=== PATIENT | female | born 1980 | race Two or more races ===

== ENCOUNTER 2017-11-03 02:21 | Emergency (ER) | payer MEDICAID, OTHER, SELFPAY ==
[~2017-11-03] VITALS: Ht 157.5 cm; Wt 68.0 kg
[2017-11-03] MEDS ORDERED: ONDANSETRON 2MG/ML, 2ML ONE (03:59)
[2017-11-03] MEDS ORDERED: MORPHINE SULFATE 4 MG/ML, 1ML ONE (03:59)
[2017-11-03] MEDS ORDERED: ONDANSETRON 2MG/ML, 2ML IVPush ONE (04:00)
[2017-11-03] MEDS ORDERED: MORPHINE SULFATE 4 MG/ML, 1ML IVPush PRN (04:00)
[2017-11-03 04:16] LABS: BASOPHILS # (AUTO) 0.02 x10^3/uL (0-0.1); BASOPHILS % (AUTO) 0 % (0-1); EOSINOPHILS # (AUTO) 0.07 x10^3/uL (0-0.4); EOSINOPHILS % (AUTO) 1 % (1-7); LYMPHOCYTES % (AUTO) 13 % (22-44); MD NO; MEAN CORPUSCULAR HEMOGLOBIN 30.4 pg (27.0-34.8); MEAN CORPUSCULAR HGB CONC 33.9 g/dL (32.4-35.8); MEAN CORPUSCULAR VOLUME 89.5 fL (80-100); MONOCYTES # (AUTO) 0.57 x10^3/uL (0.2-0.8); MONOCYTES % (AUTO) 5 % (2-9); NEUTROPHILS # (AUTO) 9.17 x10^3/uL (1.8-6.8); NEUTROPHILS % (AUTO) 82 % (42-75); PLATELET COUNT 297 x10^3/uL (130-400); RED BLOOD COUNT 4.33 x10^6/uL (3.82-5.3); RED CELL DISTRIBUTION WIDTH 13.2 % (9.6-15.2)
[2017-11-03 04:23] LABS: ALBUMIN 3.7 g/dL (3.4-5.0); ANION GAP 5 mmol/L (5-15); CALCIUM 8.7 mg/dL (8.5-10.1); CHLORIDE 109 mmol/L (98-107); CREATININE 1.14 mg/dL (0.55-1.02)
[2017-11-03 04:47] LABS: CULTURE INDICATED? NO; MICROSCOPIC NOT IND
[2017-11-03 05:28] VITALS: BP 112/67
== END 2017-11-03 05:41 | disposition home or self-care (01) ==
LOC: ED 05:19
DX: N83.201 Unspecified ovarian cyst, right side (principal); R10.2 Pelvic and perineal pain; R11.2 Nausea with vomiting, unspecified
CPT/HCPCS: 36415; 76830; 80048; 81003; 82040; 84703; 85025; 96374; 96375; 99285; J2405

== ENCOUNTER → 2019-04-01 | Outpatient (CLI) | payer BC | END | disposition home or self-care (01) | LOC: CFH 14:37 | PROVIDERS: ATTEND Obstetrics & Gynecology | DX: N60.02 Solitary cyst of left breast (principal); N60.01 Solitary cyst of right breast | CPT/HCPCS: 76642; 77066; G0279 ==

== ENCOUNTER → 2020-08-23 | Outpatient (CLI) | payer BC | END | disposition home or self-care (01) | LOC: STAR 09:04 | PROVIDERS: ATTEND Anesthesiology | DX: Z01.812 Encounter for preprocedural laboratory examination (principal); Z20.828 Contact with and (suspected) exposure to other viral communicable diseases | CPT/HCPCS: 36415; 87635 ==

== ENCOUNTER 2020-08-27 05:54 | Day surgery (SDC) | payer BC ==
[~2020-08-27] VITALS: Ht 157.5 cm; Wt 69.0 kg
[2020-08-27 06:38] VITALS: BP 113/74
[2020-08-27] MEDS ORDERED: LACTATED RINGERS 1,000 ML IV SCH (07:00)
[2020-08-27] MEDS ORDERED: CHLORHEXIDINE 15 ML UDC MM ONE (07:00)
[2020-08-27] MEDS ORDERED: LIDOCAINE-MPF 1%, 2ML ONE (07:05)
[2020-08-27] MEDS ORDERED: EPINEPHRINE 1 MG/ML, 1ML ONE (07:08)
[2020-08-27] MEDS ORDERED: BUPIVACAINE/PF 0.25% ONE (07:08)
[2020-08-27] MEDS ORDERED: SILVER NITRATE STICK TP ONE (07:09)
[2020-08-27] MEDS ORDERED: KRIL500C PO (07:14)
[2020-08-27] MEDS ORDERED: ELDE1CAP PO (07:14)
[2020-08-27] MEDS ORDERED: MULT1CAP19 PO (07:14)
[2020-08-27] MEDS ORDERED: CYAN250013 PO (07:14)
[2020-08-27] MEDS ORDERED: MIDAZOLAM 1 MG/ML, 2ML ONE (07:29)
[2020-08-27] MEDS ORDERED: FENTANYL PF 100 MCG/2ML ONE (07:29)
[2020-08-27 07:36] LABS: BASOPHILS % (AUTO) 1 % (0-1); EOSINOPHILS % (AUTO) 4 % (1-7); LYMPHOCYTES % (AUTO) 31 % (22-44); MEAN CORPUSCULAR HGB CONC 31.7 g/dL (32.4-35.8); MEAN PLATELET VOLUME 8.2 fL (7.4-10.4); MONOCYTES % (AUTO) 7 % (2-9); NEUTROPHILS % (AUTO) 57 % (42-75); PLATELET COUNT 389 x10^3/uL (130-400); RED BLOOD COUNT 4.31 x10^6/uL (3.82-5.3); RED CELL DISTRIBUTION WIDTH 16.6 % (9.6-15.2)
[2020-08-27 07:39] LABS: MD NO
[2020-08-27] MEDS ORDERED: PROPOFOL 50 ML ONE (07:44)
[2020-08-27] MEDS ORDERED: DEXAMETHASONE 4 MG/ML, 1ML ONE (07:58)
[2020-08-27] MEDS ORDERED: ONDANSETRON 2MG/ML, 2ML ONE (07:58)
[2020-08-27] MEDS ORDERED: CEFAZOLIN 1,000 MG ONE (07:58)
[2020-08-27] MEDS ORDERED: PROPOFOL 10 MG/ML, 20ML ONE (07:58)
[2020-08-27] MEDS ORDERED: KETOROLAC 30 MG/1 ML ONE (07:58)
[2020-08-27] MEDS ORDERED: LORazepam 2 MG/ML, 1ML IVPush PRN (08:00)
[2020-08-27] MEDS ORDERED: HYDROmorphone 1 MG/ML, 1ML INJ IVPush PRN (08:00)
[2020-08-27] MEDS ORDERED: METHOCARBAMOL 1,000 MG in DEXTROSE 5% 100 ML IV PRN (08:00)
[2020-08-27] MEDS ORDERED: OXYcodone 5 MG/5 ML ORAL.SOL UDC PO PRN (08:00)
[2020-08-27] MEDS ORDERED: PROMETHAZINE 25 MG/ML, 1ML IVPush PRN (08:00)
[2020-08-27] MEDS ORDERED: FENTANYL PF 100 MCG/2ML IV PRN (08:00)
[2020-08-27] MEDS ORDERED: ACETAMINOPHEN 325 MG TABLET PO PRN (08:00)
[2020-08-27] MEDS ORDERED: PROMETHAZINE 25 MG SUPP PR PRN (08:00)
[2020-08-27] MEDS ORDERED: ONDANSETRON 2MG/ML, 2ML IVPush PRN (08:00)
[2020-08-27] MEDS ORDERED: BUPIVACAINE/PF-EPI 0.25% 1:200K IM ONE (08:01)
[2020-08-27] MEDS ORDERED: ACETAMINOPHEN 650 MG/20.3 ML UDC ONE (08:59)
[2020-08-27] MEDS ORDERED: OXYcodone 5 MG/5 ML ORAL.SOL UDC ONE (09:00)
== END 2020-08-27 10:40 | disposition home or self-care (01) ==
LOC: OUT 05:54
PROVIDERS: ATTEND Obstetrics & Gynecology
DX: N93.8 Other specified abnormal uterine and vaginal bleeding (principal); N84.0 Polyp of corpus uteri; I73.00 Raynaud's syndrome without gangrene; Z79.899 Other long term (current) drug therapy; Z98.890 Other specified postprocedural states; Z80.49 Family history of malignant neoplasm of other genital organs
CPT/HCPCS: 36415; 58558; 81025; 85025; 88305; J0171; J0690; J1100; J1885; J2250; J2405; J2704; J3010; J7120